=== PATIENT | female | born 1965 | race Caucasian/White ===

== ENCOUNTER 2016-10-06 19:54 | Emergency (ER) | payer OTHER ==
[~2016-10-06] VITALS: Ht 157.5 cm; Wt 62.0 kg
[2016-10-06 19:58] VITALS: Ht 157.5 cm; Wt 62.0 kg
[2016-10-06] MEDS ORDERED: SOD CHLORIDE 0.9% 1,000 ML IV STA (20:27)
[2016-10-06] MEDS ORDERED: ONDANSETRON 4 MG INJ IV STA (20:27)
[2016-10-06] MEDS ORDERED: morphine 4 MG/ML VIAL IV STA (20:27)
[2016-10-06 20:57] LABS: URINE BLOOD (Dip) POC Trace-intact (NEGATIVE)
[2016-10-06 21:11] LABS: ADD SCAN DIFF NO
--- NOTE | 2016-10-06 21:13 | ERD ---
ER Documentation Chief Complaint Date/Time DATE: 10/06/16 TIME: 21:08 Chief Complaint AP since 1100. Nausea and vomiting HPI 51-year-old female presents with chief complaint of abdominal pain and vomiting since 11 AM this morning. States that she has vomited 6 times. Associated symptoms include mild dysuria and low back pain. She denies diarrhea, fever, vaginal bleeding, hematochezia, and hematemesis. Abdominal surgeries are significant for cholecystectomy and tubal ligation. She denies recent travel. No sick contacts in her home. LNMP was November of last year. ROS All systems reviewed and are negative except as per history of present illness. Allergies Allergies: Coded Allergies: No Known Allergy (Unverified , 10/06/16) PMhx/Soc History of Surgery: Yes (cholecystectomy, tubal ligation ) Anesthesia Reaction: No Hx Neurological Disorder: No Hx Respiratory Disorders: No Hx Cardiac Disorders: No Hx Psychiatric Problems: No Hx Miscellaneous Medical Probl: Yes (diabetes) Hx Alcohol Use: No Hx Substance Use: No Hx Tobacco Use: No Smoking Status: Never smoker Physical Exam Vitals Vital Signs Date Time Temp Pulse Resp B/P Pulse Ox O2 Delivery O2 Flow Rate FiO2 10/06/16 19:58 98.4 112 18 119/63 99 Physical Exam GENERAL: Non-toxic. No apparent signs of distress. LUNGS: Clear to auscultation. No accessory muscle use. No wheezing, no crackles. No signs or symptoms of respiratory distress. HEART: Regular rate and rhythm. No murmurs, clicks, rubs or gallops. ABDOMEN: Soft and nondistended. Bowel sounds positive. Mild tenderness to palpation of the epigastric and periumbilical area. No adnexal tenderness. No rebound or guarding. No gross peritoneal signs. No Metcalf or McBurney point tenderness. No gross masses. BACK: No midline tenderness, no costovertebral tenderness. SKIN: There is no apparent rash, petechiae, erythema or swelling. Good skin turgor. Result Diagram: 10/06/16 2100 10/06/16 2100 Results 24 hrs Laboratory Tests Test 10/06/16 20:40 10/06/16 20:55 10/06/16 21:00 Urine Bilirubin NEGATIVE Urine Clarity CLEAR Urine Color LT. YELLOW Urine Glucose 0.5%% Urine Hemoglobin NEGATIVE Urine Ketones 3+ Urine Leukocyte Esterase NEGATIVE Urine Nitrite NEGATIVE Urine Specific [place] 1.015 Urine Total Protein NEGATIVE Urine Urobilinogen 0.2 E.U./dL Urine pH 5.5 Bedside Urine Blood Trace-intact Bedside Urine Glucose (UA) 0.50% Bedside Urine Ketones (LAB) 3+ Bedside Urine Leukocyte Esterase (L Negative Bedside Urine Nitrite (LAB) Negative Bedside Urine Protein (LAB) Negative Bedside Urine pH (LAB) 5.5 Alanine Aminotransferase (ALT/SGPT) 30IU/L Albumin 4.6g/dl Albumin/Globulin Ratio 1.24 Alkaline Phosphatase 153IU/L Anion Gap 20 Aspartate Amino Transf (AST/SGOT) 24IU/L Basophils # 0.010^3/ul Basophils % 0.3% Blood Urea Nitrogen 18mg/dl Calcium Level 9.9mg/dl Carbon Dioxide Level 29mmol/L Chloride Level 95mmol/L Creatinine 0.56mg/dl Direct Bilirubin 0.00mg/dl Eosinophils # 0.010^3/ul Eosinophils % 0.1% Globulin 3.70g/dl Glucose Level 297mg/dl Hematocrit 48.5% Hemoglobin 16.6g/dl Indirect Bilirubin 0.5mg/dl Lipase 84U/L Lymphocytes # 1.710^3/ul Lymphocytes % 15.1% Mean Corpuscular Hemoglobin 29.6pg Mean Corpuscular Hemoglobin Concent 34.2g/dl Mean Corpuscular Volume 86.5fl Mean Platelet Volume 9.9fl Monocytes # 0.410^3/ul Monocytes % 3.1% Neutrophils # 9.210^3/ul Neutrophils % 81.0% Nucleated Red Blood Cells # 0.010^3/ul Nucleated Red Blood Cells % 0.0/100WBC Platelet Count 21806^3/UL Potassium Level 4.2mmol/L Red Blood Count 5.6110^6/ul Red Cell Distribution Width 12.5% Sodium Level 140mmol/L Total Bilirubin 0.5mg/dl Total Protein 8.3g/dl White Blood Count 11.310^3/ul Current Medications Medications (Trade) Dose Ordered Sig/Daxa Route PRN Reason Start Time Stop Time Status Last Admin Dose Admin Sodium Chloride (NS) 1,000 ml @ 1,000 mls/hr Q1H STAT IV 10/06/16 20:27 10/06/16 21:26 DC 10/06/16 20:55 Morphine Sulfate (morphine) 4 mg ONCE STAT IV 10/06/16 20:27 10/06/16 20:36 DC 10/06/16 20:57 Ondansetron HCl (Zofran Inj) 4 mg ONCE STAT IV 10/06/16 20:27 10/06/16 20:36 DC 10/06/16 20:55 Procedures/MDM Patient presented with chief complaint of abdominal pain and vomiting. Stated that she vomited 6 today. On exam she had mild tenderness to palpation of the epigastric and periumbilical area. Basic lab work was ordered along with a CT of the abdomen without contrast, to rule out acute surgical abdomen. While waiting for results patient was given 1 L of IV fluids, 4 mg IV morphine and 4 mg IV Zofran. Patient tolerated medications well. CBC: Elevated WBC, RBC, and hemoglobin likely due to hemoconcentration CMP: No severe electrolyte imbalance, normal kidney function, Lipase: Within normal limits UA: No leukocyte Estrace or nitrite, UTI unlikely CT abdomen and pelvis: IMPRESSION: 1. Status post cholecystectomy. 2. Partial small bowel obstruction with no definite transition point. There is gradual tapering of the distal small bowel. 3. Mild degenerative changes of the spine. 4. Otherwise unremarkable study. Patient symptoms of abdominal pain and vomiting are likely due to small bowel obstruction, I have discussed this case with my supervising physician Dr. Cameron. Patient will be transferred to the main ER for admission and NG tube placement. At this time of low suspicion for appendicitis, Jossy cystitis, pancreatitis, diverticulitis, bowel perforation, and sepsis. On reexamination patient reported relief of pain with IV morphine, is resting comfortably. Departure Diagnosis: Primary Impression: Abdominal pain Abdominal location: periumbilical Qualified Code: R10.33 - Periumbilical abdominal pain Additional Impression: Small bowel obstruction Condition: Stable Susan Bowie PA-C Oct 06, 2016 21:13
[2016-10-06 21:16] LABS: BASOPHILS % 0.3 % (0.0-2.0); EOSINOPHILS % 0.1 % (0.0-7.0); HEMATOCRIT 48.5 % (37.0-47.0); HEMOGLOBIN 16.6 g/dl (12.0-16.0); LYMPHOCYTES # 1.7 10^3/ul (0.8-2.9); LYMPHOCYTES % 15.1 % (15.0-51.0); MEAN CORPUSCULAR HEMOGLOBIN 29.6 pg (29.0-33.0); MEAN CORPUSCULAR HGB CONC 34.2 g/dl (32.0-37.0); MEAN CORPUSCULAR VOLUME 86.5 fl (82.0-101.0); MEAN PLATELET VOLUME 9.9 fl (7.4-10.4); MONOCYTE # 0.4 10^3/ul (0.3-0.9); MONOCYTES % 3.1 % (0.0-11.0); NEUTROPHIL # 9.2 10^3/ul (1.6-7.5); PLATELET COUNT 290 10^3/UL (140-415); RED BLOOD COUNT 5.61 10^6/ul (4.20-5.40); RED CELL DISTRIBUTION WIDTH 12.5 % (11.5-14.5); WHITE BLOOD COUNT 11.3 10^3/ul (4.8-10.8)
[2016-10-06 21:20] LABS: ADD UMIC NO; URINE BILIRUBIN (Dip) NEGATIVE (NEGATIVE); URINE BLOOD (Dip) NEGATIVE (NEGATIVE); URINE COLOR LT. YELLOW (YELLOW); URINE KETONES (Dip) 3+ (NEGATIVE); URINE LEUKOCYTE ESTERASE (Dip) NEGATIVE (NEGATIVE); URINE NITRITE (Dip) NEGATIVE (NEGATIVE); URINE TOTAL PROTEIN (Dip) NEGATIVE (NEGATIVE); URINE UROBILINOGEN (Dip) 0.2 E.U./dL (0.1-1.0)
--- NOTE | 2016-10-06 21:20 | RADRPT ---
PROCEDURE: CT Abdomen and Pelvis without contrast. CLINICAL INDICATION: Abdominal and pelvic pain. Vomiting. TECHNIQUE: CT scan of the abdomen and pelvis without contrast was performed. Coronal and sagittal reformatted images were obtained from the axial source images. Images were reviewed on a [employer] PACS workstation. Total exam DLP is 370.86 mGy-cm. CTDIvol is 6.58 mGy. One or more of the fo llowing dose reduction techniques were used: Automated exposure control, adjustment of the mA and/or kV according to patient size, use of iterative reconstruction technique. COMPARISON: None. FINDINGS: The lung bases are normal. There is no pleural effusion or pericardial effusion. The heart size is normal. The liver is normal in size and attenuation. There is no focal hepatic lesion. The gallbladder is surgically absent with clips noted in the gallbladder bed. The bile ducts are no rmal. The spleen is normal in size. There is no focal splenic lesion. Both adrenals are normal with no enlargement or mass. The pancreas is unremarkable with no mass or evidence of pancreatitis. There is no renal mass or hydronephrosis. There is no renal calculus or ureteral calculus. The abdominal aorta is not dilated. There is no retroperitoneal lymphadenopathy or mass. There is no pelvic lymphadenopathy or mass. The bladder and distal ureters are normal. The periappendiceal region is unremarkable with no evidence of appendicitis. There is dilated small bowel in the left side of the abdomen involving the mid to distal small bowel with air-fluid levels and fecalization of the contents. This is consistent with partial obstructio n as there is gas and stool in the colon. No definite transition point is visualized. There is gra dual tapering of the distal small bowel. There is no free fluid or free gas. There are mild degenerative changes of the spine. There is no fracture or lytic lesion. IMPRESSION: 1. Status post cholecystectomy. 2. Partial small bowel obstruction with no definite transition point. There is gradual tapering of the distal small bowel. 3. Mild degenerative changes of the spine. 4. Otherwise unremarkable study. RPTAT: QQ .Demarco Carlos MD, MD Date Time Electronically viewed and signed by .Demarco Carlos MD, MD on 10/06/2016 21:20 .R/
[2016-10-06 21:32] LABS: ALBUMIN 4.6 g/dl (3.3-4.9)
[2016-10-06 21:33] LABS: POTASSIUM 4.2 mmol/L (3.5-5.1)
[2016-10-06 21:35] LABS: CREATININE 0.56 mg/dl (0.44-1.00)
[2016-10-06 21:36] LABS: ALBUMIN/GLOBULIN RATIO 1.24; BILIRUBIN,INDIRECT 0.5 mg/dl (0-1.1); BILIRUBIN,TOTAL 0.5 mg/dl (0.2-1.3); CALCIUM 9.9 mg/dl (8.4-10.2); TOTAL PROTEIN 8.3 g/dl (6.1-8.1)
[2016-10-06 23:30] VITALS: BP 130/82; PULSE 91; RESP 18; TEMP 97.9
[2016-10-06] MEDS ORDERED: MTF1000T PO (23:38)
== END 2016-10-07 00:29 | disposition short-term general hospital (02) ==
LOC: FTE 19:54 → E/R 10-07 00:29
DX: R10.33 Periumbilical pain (principal); K56.69 Other intestinal obstruction; R11.2 Nausea with vomiting, unspecified; E11.9 Type 2 diabetes mellitus without complications
CPT/HCPCS: 36415; 74176; 80053; 81003; 82962; 83690; 85025; 96361; 96374; 96375; J2270; J2405; J7030; Z7502

== ENCOUNTER 2017-08-27 12:25 | Emergency (ER) | END 2017-08-27 15:19 | disposition home or self-care (01) ==

== ENCOUNTER 2018-10-03 11:01 | Emergency (ER) | payer OTHER ==
[~2018-10-03] VITALS: Wt 65.4 kg
[~2018-10-03 11:01] MED LIST: IBUP800T48 PO; MTF1000T PO; OSEL75CA23 PO
[2018-10-03] MEDS ORDERED: KETOROLAC 30 MG INJ IV STA (11:22)
[2018-10-03] MEDS ORDERED: SOD CHLORIDE 0.9% 1,000 ML IV STA (11:22)
[2018-10-03 13:00] VITALS: BP 101/65; PULSE 100; RESP 17
[2018-10-03] MEDS ORDERED: IBUP800T48 PO (13:49)
--- NOTE | 2018-10-03 13:58 | ERD ---
ER Documentation Chief Complaint Chief Complaint DIZZINESS, FLANK PAIN, VOMITING HPI 53-year-old female presents to the emergency room with 1-2 days of flank pain. She does describe some mild dizziness and nausea. One episode of nonbloody nonbilious emesis. The patient does describe occasional urinary frequency but no dysuria or fever. The patient does describe some mild right flank pain. Prior history of cholecystectomy, no abdominal pain or migratory pain. During the patient's encounter translation services were utilized Language: [place] Source: In person ROS All systems reviewed and are negative except as per history of present illness. Medications Home Meds Active Scripts Ibuprofen* (Motrin*) 800 Mg Tab, 800 MG PO Q6H PRN for PAIN AND OR ELEVATED TEMP, #30 TAB Prov:JUAN GRIDER MD 10/03/18 Reported Medications Metformin* (Glucophage*) 1,000 Mg Tablet, 1000 MG PO BID, #60 TAB 10/06/16 Discontinued Scripts Oseltamivir Phosphate* (Tamiflu*) 75 Mg Capsule, 75 MG PO BID for 5 Days, CAP Prov:YAQUELIN MAYA PA-C 08/27/17 Ibuprofen* (Motrin*) 800 Mg Tab, 800 MG PO Q6, #30 TAB Prov:YAQUELIN MAYA PA-C 08/27/17 Allergies Allergies: Coded Allergies: No Known Allergy (Unverified , 10/06/16) PMhx/Soc History of Surgery: Yes (cholecystectomy, tubal ligation ) Anesthesia Reaction: No Hx Neurological Disorder: No Hx Respiratory Disorders: No Hx Cardiac Disorders: Yes (HIGH CHOLESTEROL) Hx Psychiatric Problems: No Hx Miscellaneous Medical Probl: Yes (diabetes) Hx Alcohol Use: No Hx Substance Use: No Hx Tobacco Use: No Smoking Status: Never smoker FmHx Family History: No diabetes Physical Exam Vitals Vital Signs Date Temp Pulse Resp B/P (MAP) Pulse Ox O2 O2 Flow FiO2 Time Delivery Rate 10/03/18 97.6 100 17 101/65 99 Room Air 13:00 (77) 10/03/18 97.6 85 17 100/62 99 Room Air 12:30 (75) 10/03/18 97.4 106 17 113/67 99 11:05 (82) Physical Exam General: Well developed, well nourished, no acute distress Head: Normocephalic, atraumatic. Eyes: Pupils equally reactive, EOM intact ENT: Moist mucous membranes Neck: Supple, no lymphadenopathy Respiratory: Lungs clear bilaterally, no distress Cardiovascular: RRR, no murmurs, rubs, or gallops Abdominal: Soft, non-tender, non-distended, no peritoneal signs, no tenderness to McBurney's point Back: Mild inconsistent right-sided CVAT : Deferred MSK: No edema, no unilateral swelling, 5/5 strength Neurologic: Alert and oriented, moving all extremities, normal speech, no focal weakness, no cerebellar signs Skin: No rash Psych: Normal mood Result Diagram: 10/03/18 1132 10/03/18 1132 Results 24 hrs Laboratory Tests Test 10/03/18 11:32 White Blood Count 6.5 10^3/ul Red Blood Count 5.12 10^6/ul Hemoglobin 14.8 g/dl Hematocrit 44.7 % Mean Corpuscular Volume 87.3 fl Mean Corpuscular Hemoglobin 28.9 pg Mean Corpuscular Hemoglobin Concent 33.1 g/dl Red Cell Distribution Width 12.0 % Platelet Count 261 10^3/UL Mean Platelet Volume 9.6 fl Immature Granulocytes % 0.300 % Neutrophils % 49.3 % Lymphocytes % 41.1 % Monocytes % 5.8 % Eosinophils % 2.6 % Basophils % 0.9 % Nucleated Red Blood Cells % 0.0 /100WBC Immature Granulocytes # 0.020 10^3/ul Neutrophils # 3.2 10^3/ul Lymphocytes # 2.7 10^3/ul Monocytes # 0.4 10^3/ul Eosinophils # 0.2 10^3/ul Basophils # 0.1 10^3/ul Nucleated Red Blood Cells # 0.0 10^3/ul Urine Color YELLOW Urine Clarity CLEAR Urine pH 5.0 Urine Specific [place] 1.019 Urine Ketones NEGATIVE mg/dL Urine Nitrite NEGATIVE mg/dL Urine Bilirubin NEGATIVE mg/dL Urine Urobilinogen NEGATIVE mg/dL Urine Leukocyte Esterase TRACE Michael/ul Urine Microscopic RBC 0 /HPF Urine Microscopic WBC 1 /HPF Urine Squamous Epithelial Cells FEW /HPF Urine Mucus FEW /HPF Urine Hemoglobin 1+ mg/dL Urine Glucose NEGATIVE mg/dL Urine Total Protein NEGATIVE mg/dl Sodium Level 145 mmol/L Potassium Level 4.5 mmol/L Chloride Level 107 mmol/L Carbon Dioxide Level 28 mmol/L Anion Gap 10 Blood Urea Nitrogen 11 mg/dl Creatinine 0.49 mg/dl Est Glomerular Filtrat Rate mL/min > 60 mL/min Glucose Level 115 mg/dl Calcium Level 9.8 mg/dl Total Bilirubin 0.3 mg/dl Direct Bilirubin 0.00 mg/dl Indirect Bilirubin 0.3 mg/dl Aspartate Amino Transf (AST/SGOT) 21 IU/L Alanine Aminotransferase (ALT/SGPT) 19 IU/L Alkaline Phosphatase 108 IU/L Total Protein 8.0 g/dl Albumin 4.4 g/dl Globulin 3.60 g/dl Albumin/Globulin Ratio 1.22 Lipase 209 U/L Current Medications Medications Dose Sig/Daxa Start Time Status Last (Trade) Ordered Route PRN Stop Time Admin Dose Reason Admin Sodium 1,000 ml @ Q1H STAT 10/03/18 DC 10/03/18 Chloride 1,000 mls/hr IV 11:22 11:35 10/03/18 12:21 Ketorolac 30 mg ONCE STAT 10/03/18 DC 10/03/18 Tromethamine IV 11:22 11:35 (Toradol) 10/03/18 11:23 Procedures/MDM EKG, MONITORS, & DIAGNOSTIC IMAGING: CT a/p: IMPRESSION: 1. No gross renal/ureteric calculi. No evidence of obstructive uropathy. 2. No evidence of acute intra-abdominal/pelvic inflammatory process. No evidence of bowel obstruction. The appendix is within normal limits. 3. Several right lower quadrant mesenteric lymph nodes, cannot exclude me senteric lymphadenitis. 4. Status post cholecystectomy. 5. No evidence of free fluid or free air. No gross focal fluid collections. RPTAT: AAPP LAB INTERPRETATION: I reviewed the laboratory testing and it shows no evidence of acute process MEDICAL DECISION MAKING: Patient presents with right-sided flank pain. Differential is broad but the patient does describe some urinary urgency and or frequency. Mild right-sided flank pain raise the concern for possible pyelonephritis. However the patient's laboratory testing and urinalysis were not consistent with acute pyelonephritis. Given unclear etiology CT imaging of the abdomen pelvis was ordered. Patient is status post cholecystectomy no evidence of bowel obstruction or cardiopulmonary process. ER COURSE: * Patient's pain completely alleviated with nonsteroidal anti-inflammatory. CT imaging shows evidence of possible mesenteric adenitis which could explain her symptoms. Otherwise unremarkable. * At this point I feel the patient can be safely discharged home. A repeat abdominal exam and back exam are unremarkable. The patient has no indication for antibiotics. NSAIDs and oral hydration would be most appropriate. CONSULTATION: None DISPOSITION PLAN: The patient does not have an identifiable emergent medical condition that warrants inpatient hospitalization at this time. The patient is deemed safe for discharge with outpatient follow-up. We discussed follow up with the patient's primary care doctor within 24 to 48 h ours as needed. We also discussed return to the emergency room for worsening symptoms or worsening condition. Outpatient referral: None required Discharge Medications: Motrin Departure Diagnosis: Primary Impression: Flank pain Additional Impression: Acute mesenteric adenitis Condition: Stable Patient Instructions: Flank Pain, Uncertain Cause Additional Instructions: Llame al doctor nombrado koby (Referral Sources) MAANA y nba iiss CHRIS PARA DENTRO DE ISIS SEMANA. Dgale a la secretaria que nosotros le instruimos hacer esta chris.Avise o llame si hernandez condicin se empeora antes de la chris. JUAN GRIDER MD Oct 03, 2018 13:58
== END 2018-10-03 14:20 | disposition home or self-care (01) ==
LOC: E/R 11:01
DX: I88.0 Nonspecific mesenteric lymphadenitis (principal); E11.9 Type 2 diabetes mellitus without complications; Z79.84 Long term (current) use of oral hypoglycemic drugs
CPT/HCPCS: 36415; 74176; 80053; 81001; 83690; 85025; 87086; 96374; J1885; J7030; Z7502

== ENCOUNTER 2018-11-04 17:22 | Emergency (ER) | payer OTHER ==
[~2018-11-04] VITALS: Ht 160 cm; Wt 67.4 kg
[~2018-11-04 17:22] MED LIST changes: -OSEL75CA23 PO
[2018-11-04 17:25] VITALS: Ht 160 cm; Wt 67.4 kg
[2018-11-04] MEDS ORDERED: KETOROLAC 30 MG INJ IV STA (18:03)
[2018-11-04] MEDS ORDERED: DIPHENHYDRAMINE 50 MG INJ IV ONE (18:30)
[2018-11-04] MEDS ORDERED: METOCLOPRAMIDE 10 MG INJ IV ONE (18:30)
[2018-11-04] MEDS ORDERED: SOD CHLORIDE 0.9% 1,000 ML IV ONE (19:00)
[2018-11-04] MEDS ORDERED: BUTA1CAP38 PO (21:25)
[2018-11-04] MEDS ORDERED: ONDA4TAB14 PO (21:26)
[2018-11-04] MEDS ORDERED: DEXAMETHASONE 10 MG/ML 1 ML INJ IM ONE (21:30)
[2018-11-04 22:09] VITALS: BP 104/69; PULSE 94; RESP 18
--- NOTE | 2018-11-04 22:17 | ERD ---
ER Documentation Chief Complaint Chief Complaint N/V and head pain x 2 days denies fever HPI History of Present Illness: 53-year-old male with past medical history of diabetes and migraines coming in today for headache, nausea, vomitingx2 that is been present for 2 days. Associated symptoms include photophobia and phonophobia. Patient denies any other associated symptoms. Denies dizziness, thunderclap-like headache, slurred speech, confusion. At home pharmacological/nonpharmacological treatment for symptoms: Denies Denies social concerns; Denies recent foreign travel ROS All systems reviewed and are negative except as per history of present illness. Medications Home Meds Active Scripts Ondansetron (Ondansetron Odt) 4 Mg Tab.rapdis, 4 MG PO Q8 PRN for NAUSEA AND/OR VOMITING, #10 TAB Prov:TIMA GEORGE NP 11/04/18 Xeienahtzv-Jhkghebejpmln-Wbmdbhlk* (Fioricet*) 50-300-40 Mg Capsule, 1 CAP PO Q8 PRN for HEADACHE, #30 CAP Prov:TIMA GEORGE NP 11/04/18 Ibuprofen* (Motrin*) 800 Mg Tab, 800 MG PO Q6H PRN for PAIN AND OR ELEVATED TEMP, #30 TAB Prov:JUAN GRIDER MD 10/03/18 Reported Medications Metformin* (Glucophage*) 1,000 Mg Tablet, 1000 MG PO BID, #60 TAB 10/06/16 Allergies Allergies: Coded Allergies: No Known Allergy (Unverified , 10/06/16) PMhx/Soc History of Surgery: Yes (cholecystectomy, tubal ligation ) Anesthesia Reaction: No Hx Neurological Disorder: No Hx Respiratory Disorders: No Hx Cardiac Disorders: Yes (HIGH CHOLESTEROL) Hx Psychiatric Problems: No Hx Miscellaneous Medical Probl: Yes (diabetes) Hx Alcohol Use: No Hx Substance Use: No Hx Tobacco Use: No Physical Exam Vitals Vital Signs Date Temp Pulse Resp B/P (MAP) Pulse Ox O2 O2 Flow FiO2 Time Delivery Rate 11/04/18 97.8 100 18 121/70 100 17:25 (87) Physical Exam Const: No acute distress, afebrile, calm with hand over her eyes Head: Atraumatic Eyes: Normal Conjunctiva ENT: Normal External Ears, Nose and Mouth. Neck: Full range of motion. No meningismus. Resp: Clear to auscultation bilaterally Cardio: Regular rate and rhythm, no murmurs Abd: Soft, non tender, non distended. No guarding, no masses, no rigidity Skin: No petechiae or rashes Back: No midline or flank tenderness Ext: No cyanosis, or edema Neur: Awake and alert x3, speaking in clear sentences, no focal deficits or facial asymmetry Psych: Normal Mood and Affect Results 24 hrs Laboratory Tests Test 11/04/18 18:14 POC Beta HCG, Qualitative NEGATIVE Current Medications Medications Dose Sig/Daxa Start Time Status Last (Trade) Ordered Route PRN Stop Time Admin Dose Reason Admin Ketorolac 30 mg ONCE STAT 11/04/18 DC 11/04/18 Tromethamine IV 18:03 18:19 (Toradol) 11/04/18 18:04 10 mg ONCE ONCE 11/04/18 DC 11/04/18 Metoclopramid IV 18:30 18:19 e HCl 11/04/18 18:31 (Reglan) 12.5 mg ONCE ONCE 11/04/18 DC 11/04/18 Diphenhydrami IV 18:30 18:19 ne HCl 11/04/18 18:31 (Benadryl) Sodium 1,000 ml @ Q1H ONCE 11/04/18 DC 11/04/18 Chloride 1,000 mls/hr IV 19:00 18:49 11/04/18 19:59 10 mg ONCE ONCE 11/04/18 DC 11/04/18 Dexamethasone IM 21:30 22:04 (Decadron) 11/04/18 21:31 Procedures/MDM ED course includes a thorough examination and history. Medications: IV NS, Reglan, Benadryl, Toradol Imaging: -- Labs: -- Low suspicion for life-threatening medical emergency. Low suspicion for n eurological emergency that requires hospitalization or immediate surgical intervention. Neuro exam unremarkable. patient presenting with constellation of symptoms likely representing migraine as characterized by history, physical exam findings. No respiratory distress, otherwise relatively well appearing and nontoxic. Patient reassessment includes patient without any nausea or vomiting during ER visit. Patient denies pain. Patient reports feeling much better. Will give dexamethasone to prevent rebound headache before discharge. Patient hemodynamically stable. Family member at bedside. Patient educated on diagnoses, prescriptions, follow-up care, return precautions. Strict return precautions given for worsening condition; questions answered discharge. Disposition for discharge with followup in 2 days with PCP/clinic. Departure Diagnosis: Primary Impression: Migraine Migraine type: unspecified Status migrainosus presence: without status migrainosus Intractability: not intractable Qualified Codes: G43.909 - Migraine, unspecified, not intractable, without status migrainosus Condition: Stable Patient Instructions: Headache, Migraine (Classical) Referrals: COMMUNITY CLINICS YOU HAVE RECEIVED A MEDICAL SCREENING EXAM AND THE RESULTS INDICATE THAT YOU DO NOT HAVE A CONDITION THAT REQUIRES URGENT TREATMENT IN THE EMERGENCY DEPARTMENT. FURTHER EVALUATION AND TREATMENT OF YOUR CONDITION CAN WAIT UNTIL YOU ARE SEEN IN YOUR DOCTORS OFFICE WITHIN THE NEXT 1-2 DAYS. IT IS YOUR RESPONSIBILITY TO MAKE AN APPOINTMENT FOR FOLOW-UP CARE. IF YOU HAVE A PRIMARY DOCTOR --you should call your primary doctor and schedule an appointment IF YOU DO NOT HAVE A PRIMARY DOCTOR YOU CAN CALL OUR PHYSICIAN REFERRAL HOTLINE AT IF YOU CAN NOT AFFORD TO SEE A PHYSICIAN YOU CAN CHOSE FROM THE FOLLOWING [facility] [address] [facility] [address] [facility] [facility] [address] [facility] [address] [facility] [address] [facility]. [facility] [address] [facility]. [facility] YOU HAVE RECEIVED A MEDICAL SCREENING EXAM AND THE RESULTS INDICATE THAT YOU DO NOT HAVE A CONDITION THAT REQUIRES URGENT TREATMENT IN THE EMERGENCY DEPARTMENT. FURTHER EVALUATION AND TREATMENT OF YOUR CONDITION CAN WAIT UNTIL YOU ARE SEEN IN YOUR DOCTORS OFFICE WITHIN THE NEXT 1-2 DAYS. IT IS YOUR RESPONSIBILITY TO MAKE AN APPOINTMENT FOR FOLOW-UP CARE. IF YOU HAVE A PRIMARY DOCTOR --you should call your primary doctor and schedule and appointment IF YOU DO NOT HAVE A PRIMARY DOCTOR YOU CAN CALL OUR PHYSICIAN REFERRAL HOTLINE AT . IF YOU CAN NOT AFFORD TO SEE A PHYSICIAN YOU CAN CHOSE FROM THE FOLLOWING [facility] INSTITUTIONS: [id number] [place] [address] [facility] [address] [place] [address] [facility] [address] [place] [address] Additional Instructions: Muchas darryl por permitirnos participar en vance cuidado. Vance travis y seguridad es nuestra principal prioridad en [facility]. Es importante leer todas las instrucciones de adrianna y la educacin que se proporcionan en vance paquete de adrianna. Llame a vance mdico de atencin primaria MAANA para isis juno yaneli los prximos 2 a 4 angel y lleve toda la informacin y los medicamentos recetados. Llene las recetas y siga exactamente las instrucciones de la etiqueta. -Zofran es un medicamento para las nuseas / vmitos; tome jocelyne medicamento segn sea necesario para las nuseas / vmitos / disminucin del apetito. -Fiorcet (butalbital / acetaminophen / caffeine) es un medicamento para el dolor asociado con dolor de diann / migraa; delilah jocelyne medicamento segn sea necesario segn lo prescrito Si los sntomas empeoran y vance proveedor no est disponible, regrese inmediata mente al Departamento de Emergencias. ---- Thank you very much for allowing us to participate in your care. Your health and safety is our top priority at [facility]. It is important to read all discharge instructions and education provided in your discharge packet. Call your primary care doctor TOMORROW for an appointment during the next 2-4 days and bring all the information and medications prescribed. Have prescriptions filled and follow precisely the directions on the label. -Zofran is a medication for nausea/vomitting; take this medication as needed for nausea/vomiting/decreased appetite. -Fiorcet (butalbital/acetaminophen/caffeine) is a medication for pain associated with headache/migraine; take this medication as needed as prescribed If the symptoms get worse and your provider is unavailable, return to the Emergency Department immediately. TIMA GEORGE NP Nov 04, 2018 22:17
== END 2018-11-04 22:16 | disposition home or self-care (01) ==
LOC: FTE 17:22
DX: G43.909 Migraine, unspecified, not intractable, without status migrainosus (principal); E11.9 Type 2 diabetes mellitus without complications; Z79.84 Long term (current) use of oral hypoglycemic drugs
CPT/HCPCS: 81025; 96372; 96374; 96375; J1100; J1200; J1885; J2765; J7030; Z7502